=== PATIENT | male | born 1950 | race Caucasian/White ===

== ENCOUNTER 2021-05-29 09:55 | Outpatient (CLI) | payer MEDICARE, BC | END 2021-05-29 09:56 | disposition home or self-care (01) | LOC: CSHULT 09:55 | PROVIDERS: ATTEND Physician Assistant Medical | DX: R79.89 Other specified abnormal findings of blood chemistry (principal) | CPT/HCPCS: 76705 ==

== ENCOUNTER 2021-12-01 12:02 | Outpatient (CLI) | payer MEDICARE, BC | END 2021-12-01 12:03 | disposition home or self-care (01) | LOC: CSHULT 12:02 | PROVIDERS: ATTEND Physician Assistant Medical | DX: Z86.19 Personal history of other infectious and parasitic diseases (principal); N28.1 Cyst of kidney, acquired | CPT/HCPCS: 76705 ==

== ENCOUNTER 2021-12-22 09:48 | Emergency (ER) | payer MEDICARE, BC ==
[2021-12-22] MEDS ORDERED: Ondansetron PF 4 MG/2 ML Vial ONE (10:31)
[2021-12-22 10:42] LABS: #Eosinphils 0.6 10x3/uL (0.0-0.5); #Monocytes 0.4 10x3/uL (0.0-1.1); #Neutrophils 7.3 10x3/uL (1.5-8.4); %Basophils 0.4 % (0.0-2.0); %Eosinophils 5.9 % (0.0-6.0); %Lymphocytes 11.6 % (18.0-47.0); %Monocytes 4.7 % (0.0-10.0); %Neutrophils 77.2 % (40.0-75.0); Hemoglobin 13.6 g/dL (13.5-17.5); Mean Corpuscular HGB CONC 33.3 g/dL (32.0-36.0); Mean Corpuscular Hemoglobin 30.2 pg (27.0-33.0); Mean Corpuscular Volume 90.5 fl (81.2-95.1); Mean Platelet Volume 10.8 fl (7.4-10.4); Platelet Count 230 10x3/uL (150-450); Red Blood Cell (RBC) Count 4.51 10x6/uL (4.32-5.72); White Blood Cell (WBC) Count 9.4 10x3/uL (3.5-10.5)
[2021-12-22] MEDS ORDERED: Iopamidol 300 61% 100 ML VIAL FS ONE (11:01)
[2021-12-22 11:07] LABS: ALT (SGPT) 16 U/L (8-55); AST (SGOT) 18 U/L (5-34); Albumin 4.2 g/dL (3.4-4.8); Alkaline Phosphatase 77 U/L (40-110); Anion Gap 14 mmol/L (10-20); BUN (Urea Nitrogen) 10 mg/dL (8.4-25.7); Calc. Creatinine Clearance 0 mL/min (70-130); Calcium 9.1 mg/dL (7.8-10.44); Carbon Dioxide 26 mmol/L (23-31); Chloride 104 mmol/L (98-107); Estimated GFR 95; Globulin 2.5 g/dL (2.4-3.5); Glucose 139 mg/dL (80-115); Lipase 53 U/L (8-78); Potassium 4.1 mmol/L (3.5-5.1); Protein, Total 6.7 g/dL (5.8-8.1); Sodium 140 mmol/L (136-145)
[2021-12-22 11:15] LABS: Bilirubin Neg (Negative); Blood, Urine 25 (Negative); Clarity Clear (Clear); Glucose, Urine (Dipstick) 50 mg/dL (Negative); Ketone, Urine Negative (Negative); Leukocyte Negative (Negative); Nitrite Negative (Negative); Protein, Urine (Dipstick) Negative (Neg-Trace); Specific Gravity, Urine 1.015 (1.002-1.036); Urobilinogen Normal mg/dL (Less than 2)
[2021-12-22 11:30] LABS: Bacteria/HPF None Seen HPF (None Seen); RBC/HPF 0-3 HPF (0-3); Squamous Epithelial None Seen HPF (0-3); WBC/HPF None Seen HPF (0-3)
== END 2021-12-22 15:03 | disposition home or self-care (01) ==
LOC: CSHERS 09:48
DX: R11.2 Nausea with vomiting, unspecified (principal); I10 Essential (primary) hypertension; I25.10 Atherosclerotic heart disease of native coronary artery without angina pectoris; E11.9 Type 2 diabetes mellitus without complications; E03.9 Hypothyroidism, unspecified; E78.5 Hyperlipidemia, unspecified; E78.00 Pure hypercholesterolemia, unspecified; Z79.899 Other long term (current) drug therapy; Z79.84 Long term (current) use of oral hypoglycemic drugs
CPT/HCPCS: 74177; 80053; 81003; 81015; 83605; 83690; 84484; 85025; 87040; 93005; 96361; 96374; J2405; Q9967

== ENCOUNTER 2022-06-23 07:12 | Outpatient (CLI) | payer MEDICARE, BC | END 2022-06-23 07:13 | disposition home or self-care (01) | LOC: CSHULT 07:12 | PROVIDERS: ATTEND Physician Assistant Medical | DX: Z86.19 Personal history of other infectious and parasitic diseases (principal); K21.9 Gastro-esophageal reflux disease without esophagitis; Z90.49 Acquired absence of other specified parts of digestive tract | CPT/HCPCS: 76700 ==

== ENCOUNTER 2023-06-09 08:13 | Outpatient (CLI) | payer MEDICARE, BC | END 2023-06-09 08:14 | disposition home or self-care (01) | LOC: CSHMRI 08:13 | PROVIDERS: ATTEND Physician Assistant Medical | DX: Z86.19 Personal history of other infectious and parasitic diseases (principal); K21.9 Gastro-esophageal reflux disease without esophagitis | CPT/HCPCS: 74183; 82565 ==

== ENCOUNTER 2023-11-29 07:23 | Outpatient (CLI) | payer MEDICARE, BC | END 2023-11-29 07:24 | disposition home or self-care (01) | LOC: CSHULT 07:23 | PROVIDERS: ATTEND Physician Assistant Medical | DX: R79.89 Other specified abnormal findings of blood chemistry (principal); Z86.19 Personal history of other infectious and parasitic diseases; K21.9 Gastro-esophageal reflux disease without esophagitis; N28.1 Cyst of kidney, acquired | CPT/HCPCS: 76705 ==

== ENCOUNTER 2024-01-18 08:57 | Outpatient (CLI) | payer MEDICARE, BC | END 2024-01-18 08:58 | disposition home or self-care (01) | LOC: CSHCP 08:57 | PROVIDERS: ATTEND Internal Medicine | DX: R91.8 Other nonspecific abnormal finding of lung field (principal); R06.09 Other forms of dyspnea | CPT/HCPCS: 71250; 94060; 94726; 94729; 94760 ==